=== PATIENT | male | born 1940 | race Caucasian/White ===

== ENCOUNTER → 2017-11-18 | Outpatient (CLI) | payer MEDICARE ==
--- NOTE | 2017-11-18 14:49 | XR ---
Left hip HISTORY: Pain and leg weakness 2 views of the left hip Bone mineralization may be slightly reduced. Joint spaces mildly reduced, there is some chondrocalcin osis, marginal spurring. Alignment is maintained. Vascular calcifications are suspected. Question sub chondral lucency at the lateral acetabulum compatible with geode. IMPRESSION: Correlate for possible crystal deposition disease rather than osteoarthritis.
--- NOTE | 2017-11-24 10:38 | P.ARTDOP ---
Arterial Doppler LOWER EXTREMITY ARTERIAL DOPPLER: DATE OF SERVICE: 11/18/2017 Reason for study: Leg numbness. Doppler waveforms: Multiphasic bilaterally throughout. Pulse volume recording: Normal configuration. Toes also have good waveforms. Pressure gradients: Only at the foot level. Ankle-brachial indices: Greater than 1 bilaterally. Toe pressures: 57 on the right, 54 on the left Impression: Normal flow proximal to foot. Lower toe pressures related to vasospastic phenomenon or less likely to distal disease. Perfusion should be quite adequate for healing..
== END | disposition home or self-care (01) ==
LOC: RADUSWWP 12:16
PROVIDERS: ATTEND Internal Medicine
DX: M25.552 Pain in left hip (principal); I73.9 Peripheral vascular disease, unspecified
CPT/HCPCS: 73502; 93923

== ENCOUNTER → 2019-05-20 | Outpatient (CLI) | payer MEDICARE ==
--- NOTE | 2019-05-20 13:57 | MR ---
MR brain without contrast HISTORY: Memory loss, imbalance and numbness in upper and lower extremities Multiplanar multisequence imaging through the brain No comparisons There is no restricted diffusion. There is ventriculomegaly thought to be in accordance within the de gree of cortical atrophy. There is no hemorrhage or hydrocephalus. There are normal vascular flow voi ds. Cerebellopontine angles, corpus callosum, pituitary, cervical medullary junction are normal. The orbits show symmetric appearance. The mucosal disease present within the maxillary sinuses, ethmoid a ir cells, possible mucus retention cyst left maxillary sinus. There is a deviated nasal septum, conch a bullosa present on the right. Confluent and scattered hyperintensities in the periventricular and s ubcortical white matter are present. IMPRESSION: Age-related atrophy and chronic small vessel ischemia, correlate for possible normal pres sure hydrocephalus.
== END | disposition home or self-care (01) ==
LOC: RADMRIMAIN 12:42
PROVIDERS: ATTEND Psychiatry & Neurology Neurology
DX: G31.1 Senile degeneration of brain, not elsewhere classified (principal); I67.82 Cerebral ischemia
CPT/HCPCS: 70551

== ENCOUNTER → 2019-05-31 | Outpatient (CLI) | payer MEDICARE ==
[~2019-05-31] MED LIST: REGADENOSON 0.4 MG/5 ML SYRINGE IV ONE
--- NOTE | 2019-05-31 12:45 | NM ---
EXAMINATION TYPE: NM stress lexiscan cardiolite DATE OF EXAM: 05/31/2019 COMPARISON: NONE HISTORY: Abnormal EKG TECHNIQUE: After the intravenous administration of 9.5 mCi Tc 99m Sestamibi - Cardiolite resting SPE CT images acquired 45 minutes post injection. The patient received 0.4mg Lexiscan, 26.2 mCi Tc 99m Sestamibi - Stress images obtained [address] injection FINDINGS: Review of stress and rest SPECT images demonstrates no distinct perfusion abnormality. Gated analysi s shows reduced wall motion involving the inferior lateral myocardium. An estimated left ventricular ejection fraction of 63 %. IMPRESSION: 1. Predominantly fixed defect involving the inferior and inferior lateral myocardium with correspondi ng abnormal wall motion. Small stress-induced reversible perfusion defect in this region difficult to exclude.
--- NOTE | 2019-05-31 14:36 | EST ---
EXERCISE STRESS AGE: 79 SEX: M HT: 5'5" WT: 213 PROTOCOL: Lexiscan Cardiolite Study HEART RATE REST: 76 BLOOD PRESSURE REST: 140/81 MAXIMUM HEART RATE ACHIEVED: 87 MAXIMUM BLOOD PRESSURE: 135/69 85% MPHR: 121 100% MPHR: 142 INDICATIONS: Abnormal EKG CLINICAL INFORMATION: A Lexiscan nuclear study was performed. Peak heart rate of 87 was achieved. Maximum blood pressure of 135/69 mmHg was noted. Resting EKG shows normal sinus rhythm with normal IL interval and QRS duration and normal ST-T waves. There is a small Q-wave noted in lead V5 and V6. No ST-segment depression suggestive of ischemia was noted. The results of the nuclear study will follow. MMODL / IJN: [id number] /
== END | disposition home or self-care (01) ==
LOC: RADNMMAIN 08:19
PROVIDERS: ATTEND Internal Medicine
DX: I51.89 Other ill-defined heart diseases (principal); I22.8 Subsequent ST elevation (STEMI) myocardial infarction of other sites
CPT/HCPCS: 93017; 78452; A9500; J2785

== ENCOUNTER → 2019-06-17 | Outpatient (CLI) | payer MEDICARE ==
[2019-06-17 16:30] LABS: Creatine Kinase 112 U/L (35-257)
[2019-06-17 16:34] LABS: Protein, Total 6.2 g/dL (6.2-8.2)
[2019-06-18 12:38] LABS: Albumin 3.94 g/dL (3.80-4.90); Gamma Globulin 0.86 g/dL (0.70-1.50)
== END | disposition home or self-care (01) ==
LOC: LABWHC1 09:21
PROVIDERS: ATTEND Psychiatry & Neurology Neurology
DX: G62.9 Polyneuropathy, unspecified (principal)
CPT/HCPCS: 36415; 82550; 82607; 82747; 83036; 84165; 84443; 85652; 86038; 86618; 86780

== ENCOUNTER → 2019-06-26 | Outpatient (CLI) | payer MEDICARE ==
--- NOTE | 2019-06-28 11:28 | MR ---
EXAMINATION TYPE: MR lumbar spine wo con DATE OF EXAM: 06/26/2019 COMPARISON: NONE HISTORY: Radiculopathy lumbar region TECHNIQUE: T1 and T2 axial and sagittal images of the lumbar spine are submitted. FINDINGS: There is no abnormal signal seen within the visualized spinal cord or paraspinal soft tissu es. There is multilevel severe degenerative disc disease with multilevel vacuum disks particularly no rehana at L2-3, L4-5, and L5-S1. There appears to be abnormal signal involving the S1 segment and a diff use abnormal signal in the S2 segment which is high in signal on both T1 and T2 sequences and most ty pical vertebral body hemangiomas. At L1-2 there is mild degenerative disc disease with hypertrophic change facets. No focal disc hernia tion. Neural foramina remain patent. Mild right lateral disc bulging. No canal stenosis. Vertebral tristen dy hemangioma of the posterior elements on the left suspected At L2-3 there is severe degenerative disc disease. There is diffuse disc bulging with hypertrophy of the facets and ligamentum flavum. Results in moderate left foraminal encroachment. The disc bulging i s greater laterally to the right resulting in severe right-sided foraminal encroachment. Right latera l disc protrusion or small herniation not excluded. Mild canal stenosis. At L3-4 there is degenerative disc disease with diffuse disc bulging, ligamentum flavum hypertrophy a nd facet arthropathy. There is mild bilateral foraminal encroachment and canal stenosis. Vertebral tristen dy hemangioma of L3 suspected. At L4-5 there is severe degenerative disc disease with advanced facet arthropathy and ligamentum flav um hypertrophy. Diffuse disc bulging or protrusion results in moderate to severe canal stenosis. Codie re bilateral foraminal encroachment. Epidural lipomatosis suspected. At L5-S1 there is severe degenerative disc disease with advanced facet arthropathy and suspicion for bilateral spondylolysis with bilateral spondylolisthesis. Severe bilateral neural foraminal encroachm ent. Broad-based disc bulging contributes to mild central stenosis. Bilateral lateral recess stenosis suspected. IMPRESSION: 1. Severe multilevel degenerative disc disease with marked facet arthropathy and suspicion for bilate ral spondylolysis of L5 resulting in a grade 1 anterolisthesis of L5 and S1. Mild canal stenosis and severe bilateral foraminal encroachment at this level. 2. Severe bilateral foraminal encroachment L4-L5 disc use disc bulging and hypertrophic changes resul ting in moderate to severe canal stenosis and severe bilateral foraminal encroachment. Epidural lipom atosis likely contributes. 3. Disc bulging and hypertrophic changes L3-L4 result in mild canal stenosis and mild bilateral richelle inal encroachment. 4. Disc bulging greater laterally to the right L2-L3 results in severe right-sided foraminal encroach ment. Lateral disc protrusion or small herniation cannot excluded. Findings result in mild canal sten osis. 5. Abnormal marrow signal as discussed above most likely on the basis of vertebral body hemangiomas w hich could be correlated with bone scan as clinically warranted.
== END | disposition home or self-care (01) ==
LOC: RADMRIMAIN 12:25
PROVIDERS: ATTEND Psychiatry & Neurology Neurology
DX: M48.061 Spinal stenosis, lumbar region without neurogenic claudication (principal); M51.86 Other intervertebral disc disorders, lumbar region; M43.06 Spondylolysis, lumbar region; M51.16 Intervertebral disc disorders with radiculopathy, lumbar region; M46.96 Unspecified inflammatory spondylopathy, lumbar region; R94.131 Abnormal electromyogram [EMG]
CPT/HCPCS: 72148

== ENCOUNTER 2019-07-08 06:17 | Day surgery (SDC) | payer MEDICARE ==
[2019-07-08] MEDS ORDERED: ALPRAZolam 0.5 MG TAB PO PRN (06:27)
[2019-07-08] MEDS ORDERED: SODIUM CHLORIDE 0.9% 1,000 ML in EMPTY BAG 1 BAG IV ONE (06:27)
[2019-07-08] MEDS ORDERED: NITROGLYCERIN SL TABS 0.4 MG TAB SUBLINGUAL PRN ×2 (06:27→08:47)
[2019-07-08] MEDS ORDERED: ASPIRIN 325 MG TAB PO STA (06:27)
[2019-07-08] MEDS ORDERED: ATORVASTATIN 80 MG TAB PO STA (06:27)
[2019-07-08] MEDS ORDERED: ALPRAZolam 0.25 MG TAB PO PRN (06:27)
[2019-07-08] MEDS ORDERED: MIDAZOLAM 2 MG/2 ML VIAL IV ONE (07:55)
[2019-07-08] MEDS ORDERED: LIDOCAINE 1% INJ 10MG/ML (20 ML MDV) SQ ONE (07:56)
[2019-07-08] MEDS ORDERED: VERAPAMIL SYRINGE (5 MG/10 ML) INTRAARTER ONE (08:00)
[2019-07-08] MEDS ORDERED: HEPARIN SODIUM 1,000 UN/ML (10ML VL) IV ONE (08:01)
[2019-07-08] MEDS ORDERED: NITROGLYCERIN 1000MCG/10ML SYRINGE INTRACORON ONE (08:22)
[2019-07-08] MEDS ORDERED: HYDROmorphone 1 MG/ML 1 ML SYRINGE IVP ONE (08:35)
[2019-07-08] MEDS ORDERED: IOPAMIDOL-370 125ML BTL INJ ONE (08:37)
[2019-07-08] MEDS ORDERED: CLOPIDOGREL 75 MG TAB PO ONE (08:37)
[2019-07-08] MEDS ORDERED: IBUPROFEN 600 MG TAB PO PRN (08:46)
[2019-07-08] MEDS ORDERED: ACETAMINOPHEN TAB 500 MG TAB PO PRN (08:46)
[2019-07-08] MEDS ORDERED: ATROPINE SULFATE 0.1 MG/ML 10ML SYRINGE IV PRN (08:47)
[2019-07-08] MEDS ORDERED: RX INFO: IV CONTRAST WAS GIVEN 1 EACH MISC MISCELLANE PRN (08:47)
[2019-07-08] MEDS ORDERED: MAG HYDROX/AL HYDROX/SIMETH 30 ML CUP PO PRN (08:47)
[2019-07-08] MEDS ORDERED: ZOLPIDEM 5 MG TAB PO PRN (08:47)
[2019-07-08] MEDS ORDERED: SODIUM CHLORIDE 0.9% 1,000 ML IV SCH (09:00)
[2019-07-08] MEDS ORDERED: NON FORMULARY DRUG (Vitamin B Complex [Vitamin B Complex] 1 EACH) PO SCH (09:00)
[2019-07-08] MEDS ORDERED: NON FORMULARY DRUG (Omega-3 Fatty Acids/Fish Oil [Fish Oil 1,000 Mg Softgel] 1 EACH) PO SCH (09:00)
[2019-07-08] MEDS ORDERED: FOLIC ACID 1 MG TAB PO SCH (09:00)
--- NOTE | 2019-07-08 09:38 | CC ---
CARDIAC CATHETERIZATION REPORT CARDIAC CATHETERIZATION AND PERCUTANEOUS CORONARY INTERVENTION: DATE OF SERVICE: July 08, 2019 PERFORMING PHYSICIAN: Chu Celaya MD. PROCEDURE PERFORMED: 1. Selective right and left coronary angiogram. 2. Left heart catheterization. 3. Successful stenting of the distal right coronary artery using 2.0 x 12 mm Robert SAHRA with an excellent angiographic result and reduction of stenosis from 80% to 0%. INDICATION: This is a 79-year-old gentleman with history of coronary artery disease and prior stenting of the left circumflex in the setting of acute ST-segment elevation myocardial infarction, was going to undergo carpal tunnel surgery. He underwent a myocardial perfusion imaging stress test and that revealed inferolateral ischemia. Because of that, he was brought today to undergo a heart catheterization. APPROACH: Right radial artery. COMPLICATION: None. LEVEL OF SEDATION: Moderate with sedation length of 45 minutes. PROCEDURE DESCRIPTION: After obtaining an informed consent, the patient was brought to the cardiac quality assurance qa lab analyst. The right radial artery was cannulated using micropuncture technique, the micropuncture wire passed easily then I placed a 6-Tristanian sheath 11 cm at the right radial artery. After that, anticoagulation was initiated using heparin and the patient was given a weight-based heparin with 2 mg of verapamil IA. After that I did selective right and left coronary angiogram using JR4 and JL3.5 catheters. Left heart catheterization was performed using the JR4 catheter which crossed the aortic valve then I did pullback across the valve. The procedure was completed without any complication. SELECTIVE CORONARY ANGIOGRAM: 1. Right coronary artery is a large caliber vessel. It is a codominant vessel. The proximal and mid RCA appeared to have mild disease only. The RCA distally appeared to have a tight lesion in the range of 80% was most appreciated in the straight SALVADOR view as well as AP cranial view. 2. The left main is angiographically normal. It bifurcates into left circumflex and left anterior descending artery. 3. The left circumflex is a large caliber vessel. It is a codominant vessel. The proximal left circumflex has mild disease only. The mid left circumflex is stented and the stent is patent. In the middle of that stent, a good-sized OM branch comes which has an ostial disease appeared to be in the range of 80% to 90%. The left circumflex distally appeared to have another lesion in the range of 80%, but the left circumflex becomes medium caliber vessel just after it gives rise into a second OM branch which appeared to be angiographically normal. 4. The left anterior descending artery is a large caliber vessel. The appeared to have mild disease in the midportion with normal in the proximal and distal portion. The LAD gives rise into a large diagonal branch which appeared to have mild disease only as well. HEMODYNAMICS: The LVEDP was about 10 mmHg without significant gradient across the aortic valve. PCI OF THE RCA: Anticoagulation was achieved using heparin only with ACT prior to advancing the wire. After that, I did engage the RCA using JR4 guide. I did wire it using a whisper wire. After that I did balloon angioplasty using 2.0 x 8 mm balloon before I deployed 2.0 x 12 mm Sheldon drug-eluting stent where the stent was positioned under fluoroscopy guidance and deployed under 8 atmospheres for 20 seconds with the following angiogram showing excellent angiographic results and the procedure was completed without any complication. CONCLUSION: 1. Severe disease involving the distal right coronary artery with a de Rg lesion. 2. Patent stent in the mid left circumflex. Critical disease involving the ostial of OM1, which originating from the mid of the stent. Beside that, there was severe disease involving the distal left circumflex which becomes small to medium caliber vessel. 3. Mild disease involving the left anterior descending artery system. 4. Successful stenting of the distal right coronary artery as described above. POSTPROCEDURE MANAGEMENT: 1. Dual antiplatelet therapy. 2. Risk factors modifications. 3. Continue following up with the patient and consider the possible stenting of the OM1 with bifurcation stent if the patient is symptomatic. MMODL / IJN: [id number] /
--- NOTE | 2019-07-08 09:51 | LTR ---
July 08, 2019 Re: Jameson Linaresjatinder Dear Dr. Rodgers: Mr. Jameson Madrigal underwent today heart catheterization and that revealed severe disease involving the distal right coronary artery. I did perform successful angioplasty of the RCA with good angiographic results and without any complication. I want to thank you for allowing me to participate in his care and please do not hesitate to call if you have any question or concern. Sincerely, MD ARON Telles / BRENNAN: [id number] /
[2019-07-08] MEDS: TAMSULOSIN 0.4 MG CAP.ER.24H PO SCH (12:03)
[2019-07-08] MEDS: MULTIVITAMINS, THERA 1 EACH TAB PO SCH (12:03)
[2019-07-08] MEDS: CYANOCOBALAMIN 500 MCG TAB PO SCH (12:03)
[2019-07-08] MEDS: FINASTERIDE 5 MG TAB PO SCH (12:03)
[2019-07-08] MEDS: FOLIC ACID 1 MG TAB PO SCH (12:03)
[2019-07-08 14:08] VITALS: BMI 35.8
[2019-07-08] MEDS ORDERED: ATORVASTATIN 80 MG TAB PO SCH (21:00)
[2019-07-09 03:58] VITALS: TEMP 97.4
[2019-07-09 06:49] LABS: Basophils % (A) 1 %; Eosinophils # (A) 0.2 k/uL (0-0.7); Eosinophils % (A) 5 %; HCT 37.8 % (39.0-53.0); HGB 12.5 gm/dL (13.0-17.5); Lymphocytes % (A) 19 %; MCH 31.4 pg (25.0-35.0); MCHC 33.1 g/dL (31.0-37.0); MCV 94.9 fL (80.0-100.0); Mean Platelet Volume 7.7; Monocytes # (A) 0.5 k/uL (0-1.0); Monocytes % (A) 11 %; Neutrophils % (A) 61 %; Platelet Count 139 k/uL (150-450); RBC 3.98 m/uL (4.30-5.90); RDW 13.5 % (11.5-15.5)
[2019-07-09 07:06] LABS: African American GFR (CKD) >90 (>60 ml/min/1.73 sqM); Anion Gap 6 mmol/L; Blood Urea Nitrogen 24 mg/dL (9-20); Calcium 8.7 mg/dL (8.4-10.2); Carbon Dioxide 24 mmol/L (22-30); Chloride 108 mmol/L (98-107); Glucose 97 mg/dL (74-99); Non-African American GFR(CKD) 80 (>60 ml/min/1.73 sqM); Potassium 4.6 mmol/L (3.5-5.1); Sodium 138 mmol/L (137-145)
[2019-07-09 08:35] VITALS: BP 147/86; PULSE 85; RESP 18
[2019-07-09] MEDS: FINASTERIDE 5 MG TAB PO SCH (08:37)
[2019-07-09] MEDS: MULTIVITAMINS, THERA 1 EACH TAB PO SCH (08:37)
[2019-07-09] MEDS: CYANOCOBALAMIN 500 MCG TAB PO SCH (08:37)
[2019-07-09] MEDS: FOLIC ACID 1 MG TAB PO SCH (08:37)
[2019-07-09] MEDS: TAMSULOSIN 0.4 MG CAP.ER.24H PO SCH (08:37)
--- NOTE | 2019-07-09 08:56 | DS ---
DISCHARGE SUMMARY ADMISSION DATE: July 08, 2019. DISCHARGE DATE: July 09, 2019 BRIEF HISTORY: This is a 79-year-old gentleman who underwent yesterday a heart catheterization and stenting of the distal right coronary artery from right radial approach. The patient was seen this morning. He is asymptomatic. He is going to be discharged home on dual antiplatelet therapy and I will follow up with him in the office next week. MMMADHURI / SAADN: [id number] /
[2019-07-09] MEDS ORDERED: CLOPIDOGREL 75 MG TAB PO SCH (09:00)
[2019-07-09] MEDS ORDERED: ASPIRIN 81 MG PO SCH (09:00)
== END 2019-07-09 10:57 | disposition home or self-care (01) ==
LOC: CATHCVL 06:17 → 3SCARD 11:02 → CATHCVL 07-09 10:57
PROVIDERS: ATTEND Internal Medicine Interventional Cardiology
DX: I25.110 Atherosclerotic heart disease of native coronary artery with unstable angina pectoris (principal); I10 Essential (primary) hypertension; E78.5 Hyperlipidemia, unspecified; E78.00 Pure hypercholesterolemia, unspecified; Z95.5 Presence of coronary angioplasty implant and graft; Z79.1 Long term (current) use of non-steroidal anti-inflammatories (NSAID); Z79.82 Long term (current) use of aspirin; Z79.899 Other long term (current) drug therapy
CPT/HCPCS: 93458; 80048; 85025; C9600; C1769 ×2; C1887; C1725; C1874; C1894; S0138 ×2; J2250; J2001; J1644 ×2; J1170; Q9967

== ENCOUNTER → 2020-01-26 | Outpatient (CLI) | payer MEDICARE | END | disposition home or self-care (01) | LOC: RADUSWWP 12:26 | PROVIDERS: ATTEND Internal Medicine | DX: I73.9 Peripheral vascular disease, unspecified (principal) | CPT/HCPCS: 93922 ==

== ENCOUNTER → 2020-02-22 | Outpatient (CLI) | payer MEDICARE ==
[2020-02-22 16:15] LABS: HCT 38.6 % (39.0-53.0); HGB 12.4 gm/dL (13.0-17.5); MCH 30.6 pg (25.0-35.0); MCHC 32.2 g/dL (31.0-37.0); MCV 94.9 fL (80.0-100.0); Mean Platelet Volume 7.4; Platelet Count 198 k/uL (150-450); RBC 4.07 m/uL (4.30-5.90); RDW 13.4 % (11.5-15.5); WBC 6.7 k/uL (3.8-10.6)
[2020-02-22 16:45] LABS: Appearance,Urine Clear (Clear); Bilirubin,Urine Negative (Negative); Blood,Urine Negative (Negative); Color,Urine Yellow; Glucose,Urine (UA) Negative (Negative); Ketones,Urine Negative (Negative); Leukocyte Esterase,Urine Negative (Negative); Nitrite,Urine Negative (Negative); PH, Urine 5.5 (5.0-8.0); Protein,Urine Negative (Negative); Specific Gravity,Urine 1.022 (1.001-1.035); Urobilinogen,Urine <2.0 mg/dL (<2.0)
[2020-02-23 01:40] LABS: INR 0.94 (0.90-1.11); Partial Thromboplastin Time 28.7 sec (24.7-29.9); Prothrombin Time 10.1 sec (9.9-11.9)
[2020-02-23 04:18] LABS: African American GFR (CKD) 93.8 (60.0-200.0); Anion Gap 11.8 mmol/L (4.00-12.00); BUN/Creat Ratio 21.11 Ratio (12.00-20.00); Calcium 9.1 mg/dL (8.7-10.3); Carbon Dioxide 21.2 mmol/L (21.6-31.8); Non-African American GFR(CKD) 80.9 (60.0-200.0); Potassium 4.3 mmol/L (3.5-5.5)
--- NOTE | 2020-02-23 08:48 | XR ---
EXAMINATION TYPE: XR chest 2V DATE OF EXAM: 02/22/2020 COMPARISON: Prior chest x-ray 11/23/2014 HISTORY: Presurgical testing, M 48.06, Z01.812 TECHNIQUE: Frontal and lateral views of the chest are obtained. FINDINGS: There is no focal air space opacity, pleural effusion, or pneumothorax seen. The cardiac silhouette size is within normal limits. The osseous structures are intact, there is a mild spinal curvature, thoracic spondylosis. IMPRESSION: No acute cardiopulmonary process.
== END | disposition home or self-care (01) ==
LOC: LABWHC1 15:54
PROVIDERS: ATTEND Neurological Surgery
DX: Z01.818 Encounter for other preprocedural examination (principal); Z01.812 Encounter for preprocedural laboratory examination; M48.061 Spinal stenosis, lumbar region without neurogenic claudication
CPT/HCPCS: 36415; 71046; 80048; 81003; 85027; 85610; 85730

== ENCOUNTER 2020-03-14 17:38 | Emergency (ER) | payer MEDICARE ==
[2020-03-14 18:54] LABS: Basophils % (A) 0 %; Eosinophils # (A) 0.2 k/uL (0-0.7); Eosinophils % (A) 1 %; HGB 11.4 gm/dL (13.0-17.5); Lymphocytes # (A) 0.5 k/uL (1.0-4.8); Lymphocytes % (A) 5 %; MCH 31.3 pg (25.0-35.0); MCHC 32.5 g/dL (31.0-37.0); MCV 96.2 fL (80.0-100.0); Mean Platelet Volume 7.6; Monocytes # (A) 0.4 k/uL (0-1.0); Monocytes % (A) 4 %; Neutrophils # (A) 9.8 k/uL (1.3-7.7); Neutrophils % (A) 89 %; Platelet Count 265 k/uL (150-450); RBC 3.64 m/uL (4.30-5.90); RDW 13.2 % (11.5-15.5)
[2020-03-14 18:55] LABS: African American GFR (CKD) >90 (>60 ml/min/1.73 sqM); Anion Gap 7 mmol/L; Blood Urea Nitrogen 25 mg/dL (9-20); C Reactive Protein 45.2 mg/L (<10.0); Calcium 9.4 mg/dL (8.4-10.2); Carbon Dioxide 28 mmol/L (22-30); Chloride 101 mmol/L (98-107); Glucose 169 mg/dL (74-99); Non-African American GFR(CKD) 85 (>60 ml/min/1.73 sqM); Potassium 4.5 mmol/L (3.5-5.1); Sodium 136 mmol/L (137-145)
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
[2020-03-14 19:51] VITALS: RESP 18; TEMP 97.8
--- NOTE | 2020-03-14 20:45 | XR ---
Result: History: Chronic low back pain. Comparison: 09/21/2013. Technique: 3 views of the lumbar spine. Findings: The bone mineralization is normal. Images of the lumbar spine demonstrate 5 lumbar-type vertebrae. There is no acute fracture. There is redemonstration of L4-S1 posterior instrument effusion. There is grade 2 anterolisthesis of L5 on S1 . The vertebral body heights are preserved throughout the imaged lumbar spine. There is severe disc height narrowing at L2-L3 and moderate at L1-L2 as well as at the imaged lower thoracic spine. Impression: L4-S1 fusion with grade 2 anterolisthesis at L5-S1. Otherwise multilevel moderate to severe thoracolumbar spondylosis.
[2020-03-14 21:31] VITALS: PULSE 80
[2020-03-14 22:45] VITALS: BP 125/69
== END 2020-03-14 22:45 | disposition home or self-care (01) ==
LOC: EC 17:38
DX: U07.1 COVID-19 (principal); M54.5 Low back pain; I25.10 Atherosclerotic heart disease of native coronary artery without angina pectoris; I10 Essential (primary) hypertension; I25.2 Old myocardial infarction; M19.90 Unspecified osteoarthritis, unspecified site; Z79.899 Other long term (current) drug therapy; Z79.82 Long term (current) use of aspirin; Z96.653 Presence of artificial knee joint, bilateral
CPT/HCPCS: 36415; 72100; 80048; 85025; 86140; 99283

== ENCOUNTER → 2020-06-05 | Outpatient (CLI) | payer MEDICARE ==
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
== END | disposition home or self-care (01) ==
LOC: RADXRMAIN 15:19
PROVIDERS: ATTEND Neurological Surgery
DX: Z47.89 Encounter for other orthopedic aftercare (principal); M43.17 Spondylolisthesis, lumbosacral region; Z98.1 Arthrodesis status
CPT/HCPCS: 72100

== ENCOUNTER → 2020-06-22 | Outpatient (CLI) | payer MEDICARE ==
--- NOTE | 2020-06-22 15:38 | CT ---
EXAMINATION TYPE: CT pelvis wo con DATE OF EXAM: 06/22/2020 COMPARISON: None INDICATION: Rt hip pain, Spondylolisthesis DLP: 611 mGycm, Automated exposure control for dose reduction was used. CONTRAST: 0 mL of Isovue 300. Study performed without Oral Contrast TECHNIQUE: Axial images were obtained from above the iliac crests to the pubic rami in the axial plan e at 5 mm thick sections. Reconstructed images are reviewed on the computer in the coronal plane. FINDINGS: CT PELVIS: Pedicle screws are present L4-S1. Disc spacers present L4-5 L5-S1. Minimal grade 1 spondyl olisthesis of L4 anterior on L5 is present. No spinal canal stenosis present. Postlaminectomy changes are evident. Loops of bowel within the abdomen and pelvis are normal. Study is without oral contrast limiting bowel evaluation. Appendix: Normal as visualized. Urinary bladder: Decompressed. Some mild wall thickening can be related to incomplete distention. Genitourinary structures: Prostate has mild prominence. Osseous structures: No suspicious lytic or sclerotic lesions. Postsurgical changes within the lumbar spine. IMPRESSIONS: 1. Mild grade 1 spondylolisthesis of L5 anterior on S1. 2. Pedicle screws and disc spacers 034 and L4-5.
== END | disposition home or self-care (01) ==
LOC: RADCTMAIN 13:47
PROVIDERS: ATTEND Neurological Surgery
DX: M43.18 Spondylolisthesis, sacral and sacrococcygeal region (principal)
CPT/HCPCS: 72192

== ENCOUNTER → 2020-06-27 | Outpatient (CLI) | payer MEDICARE ==
[2020-06-27 16:54] LABS: ALT 18 U/L (4-49); AST 23 U/L (17-59); African American GFR (CKD) 81 (>60 ml/min/1.73 sqM); Albumin 4.3 g/dL (3.5-5.0); Albumin/Globulin Ratio 1.5; Alkaline Phosphatase 103 U/L (38-126); Anion Gap 9 mmol/L; Blood Urea Nitrogen 16 mg/dL (9-20); Calcium 9.6 mg/dL (8.4-10.2); Carbon Dioxide 29 mmol/L (22-30); Chloride 105 mmol/L (98-107); Globulin 2.9 g/dL; Glucose 107 mg/dL (74-99); Non-African American GFR(CKD) 70 (>60 ml/min/1.73 sqM); Potassium 4.6 mmol/L (3.5-5.1); Sodium 143 mmol/L (137-145); Total Bilirubin 0.4 mg/dL (0.2-1.3); Total Protein 7.2 g/dL (6.3-8.2)
== END | disposition home or self-care (01) ==
LOC: LABWHC1 14:42
PROVIDERS: ATTEND Neurological Surgery
DX: Z01.812 Encounter for preprocedural laboratory examination (principal)
CPT/HCPCS: 36415; 80053

== ENCOUNTER → 2020-11-15 | Outpatient (CLI) | payer MEDICARE ==
--- NOTE | 2020-11-15 13:30 | XR ---
Lumbar spine HISTORY: Lumbar fusion, M43.26 3 views the lumbar spine, correlation prior exam 06/05/2020 There is no significant change. There is a spinal curvature. Posterior fusion changes are stable at L 4-5 S1. There is multilevel spondylosis. Loss of disc height is present at intervertebral levels. Lum bar vertebral bodies show stable height, bone mineralization, alignment. Anterolisthesis grade 1 L5-S 1, retrolisthesis grade 1 L3-4. Intervertebral spacers are present L4-5 and L5-S1. Vacuum phenomenon present L5-S1, L4-5, L2-3, T12-L1. Calcifications are seen over the right kidney. Dense atherosclerot ic calcification present in the aortoiliac distribution. Bone mineralization is reduced. IMPRESSION: Postop changes, degenerative disc disease, spinal curvature. Right nephrolithiasis.
== END | disposition home or self-care (01) ==
LOC: RADXRMAIN 11:25
PROVIDERS: ATTEND Neurological Surgery
DX: M51.36 Other intervertebral disc degeneration, lumbar region (principal); N20.0 Calculus of kidney; M43.26 Fusion of spine, lumbar region; M53.86 Other specified dorsopathies, lumbar region
CPT/HCPCS: 72100

== ENCOUNTER → 2020-11-15 | Outpatient (CLI) | payer MEDICARE ==
[2020-11-15 18:40] LABS: Hemoglobin A1C 5.8 % (4.0-6.0)
[2020-11-15 23:24] LABS: Protein, Total 6.5 g/dL (6.2-8.2)
[2020-11-15 23:28] LABS: T4, Free (Free Thyroxine) 1.1 ng/dL (0.80-1.80)
== END | disposition home or self-care (01) ==
LOC: LABWHC1 10:46
PROVIDERS: ATTEND Psychiatry & Neurology Neurology
DX: G62.9 Polyneuropathy, unspecified (principal); R73.9 Hyperglycemia, unspecified
CPT/HCPCS: 36415; 82607; 82747; 83036; 84165; 84439; 84443; 85652; 86038; 86618

== ENCOUNTER → 2021-05-23 | Outpatient (CLI) | payer MEDICARE ==
--- NOTE | 2021-05-23 22:54 | CT ---
EXAMINATION TYPE: CT lumbar spine wo con DATE OF EXAM: 05/23/2021 COMPARISON: CT pelvis dated 06/14/2020 HISTORY: chronic low back pain, left leg numbness TECHNIQUE: CT scan of the lumbar spine performed without contrast CT DLP: 1459.2 mGycm Automated exposure control for dose reduction was used. FINDINGS: There are 5 nonrib-bearing lumbar-type vertebral bodies. There is straightening of the lumbar curvatu re. There is generalized bony demineralization. There is bilateral plate and screw complex at L4, L5 and S1. Intervertebral disc spacers are seen at L4-5 and L5-S1. The hardware appears intact. The L5 vertebral body has inferior loss of height similar to prior study likely related to endplate d egenerative changes. Multiple additional vertebral bodies display mild endplate degenerative changes. There are disc degenerative changes extending from T12 L1-S1. There is moderate-severe narrowing of the intervertebral spaces, L4-5 and L5-S1 are the most severe. L5 is slightly translated anteriorly over S1. No significant bony spinal canal stenosis. There is ventral and dorsal bony spurring extending from the lower thoracic spine throughout the lumb ar spine. Neural foraminal narrowing is present in multiple levels secondary to bony spurring and facet joint a rthropathy, this appears most severe at L4-5 and L5-S1 and does appear to be greater on the left. Evaluation for disc herniation is suboptimal due to technique and due to streak from the hardware. It is suspected there is some disc herniation at L4-5 and L5-S1. There no acute fracture or dislocation seen. No aggressive osseous lesion seen. The sacroiliac joints are partially included, there are degenerative changes in the left sacroiliac j oint. There are atherosclerotic calcifications are seen in the abdominal aorta and involve its abdominal br anches including the bilateral renal arteries. A partially seen low attenuating lesion arises from the left kidney lower pole and is incompletely ev aluated. There are calcific densities in both kidneys which may be vascular though a left kidney lowe r pole calculus may not be vascular. IMPRESSION: 1. SEVERE DEGENERATIVE CHANGES OF THE SPINE WITH SURGICAL HARDWARE, THE HARDWARE APPEARS INTACT. SEE BODY OF REPORT FOR DETAILS. 2. LARGE LOW ATTENUATING LESION PARTIALLY SEEN IN THE LEFT KIDNEY AND PROBABLE LEFT KIDNEY NONOBSTRUC TING CALCULUS. RENAL ULTRASOUND MAY BE PERFORMED FOR INITIAL EVALUATION.
== END | disposition home or self-care (01) ==
LOC: RADCTMAIN 17:47
PROVIDERS: ATTEND Neurological Surgery
DX: M51.36 Other intervertebral disc degeneration, lumbar region (principal)
CPT/HCPCS: 72131

== ENCOUNTER → 2021-06-02 | Outpatient (CLI) | payer MEDICARE ==
--- NOTE | 2021-06-03 00:44 | MR ---
EXAMINATION TYPE: MR cervical spine wo con DATE OF EXAM: 06/02/2021 COMPARISON: None HISTORY: Chronic neck pain, spinal stenosis. Multiplanar multiecho imaging of the cervical spine without contrast. Vertebrae have normal alignment. There is some mild degenerative disc space narrowing at C3-4 and C5- 6 and C6-7. There is a posterior disc bulging from C4 to C7. There is developmentally adequate spinal canal. There is no spinal stenosis. Canal measures 10 mm at the narrowest point. The brainstem is in tact. Cervical spinal cord has normal signal pattern. There is no edema. There is mild anterior disc bulging also at levels from C4 to C7. There is no compression fracture. There is no evidence of focal bone destruction. The clivus is somewhat bulky but no discrete mass seen. There is fatty marrow replacement of the cliv us. There is no cervical paraspinal mass. IMPRESSION: Mild multilevel cervical spondylotic changes with disc mild bulging. No spinal stenosis. No fracture.
== END | disposition home or self-care (01) ==
LOC: RADMRIMAIN 13:42
PROVIDERS: ATTEND Neurological Surgery
DX: M47.892 Other spondylosis, cervical region (principal); M48.02 Spinal stenosis, cervical region; G89.4 Chronic pain syndrome
CPT/HCPCS: 72141

== ENCOUNTER → 2021-06-09 | Outpatient (CLI) | payer MEDICARE ==
--- NOTE | 2021-06-10 09:58 | XR ---
EXAMINATION TYPE: XR knee limited RT DATE OF EXAM: 06/09/2021 COMPARISON: 03/08/2011 HISTORY: Pain TECHNIQUE: Three views are submitted. FINDINGS: Postsurgical changes. Soft tissue edema in the suprapatellar bursa and subcutaneous tissues. Metallic density likely related to chronic foreign body soft tissues anterior to the distal femur. Osseous st ructures are intact. No acute fracture seen. IMPRESSION: 1. No acute fracture or dislocation. 2. Soft tissue edema. See above.
== END | disposition home or self-care (01) ==
LOC: RADXRMAIN 11:53
PROVIDERS: ATTEND Internal Medicine
DX: R60.9 Edema, unspecified (principal)

== ENCOUNTER → 2021-06-14 | Outpatient (CLI) | payer MEDICARE ==
--- NOTE | 2021-06-14 16:50 | US ---
EXAMINATION TYPE: US venous doppler duplex LE BI DATE OF EXAM: 06/14/2021 4:31 PM COMPARISON: NONE CLINICAL HISTORY: R60.0 KATI LEG EDEMA. SIDE PERFORMED: Bilateral TECHNIQUE: The lower extremity deep venous system is examined utilizing real time linear array sonog giovanna with graded compression, doppler sonography and color-flow sonography. VESSELS IMAGED: Common Femoral Vein Deep Femoral Vein Greater Saphenous Vein * Femoral Vein Popliteal Vein Small Saphenous Vein * Proximal Calf Veins (* superficial vessels) Right Leg: Negative for DVT Left Leg: Negative for DVT IMPRESSION: Negative for DVT. Grayscale, color doppler, spectral doppler imaging performed of the de ep veins of the lower extremities. There is normal flow, compressibility, vascular waveforms.
--- NOTE | 2021-06-15 08:28 | XR ---
Right shoulder HISTORY: Pain, trauma 3 views of the right shoulder on 4 images, comparison to chest x-ray 02/22/2020 Bone mineralization and alignment are maintained. There is spurring of the glenohumeral joint, acromi oclavicular joint shows fracture of questionable acuity, arthropathy changes present, there is an oss ific fragment which is well-corticated at the cephalad aspect of the joint which is not felt likely t o be acute. Distal clavicular fracture shows bayonet apposition however there is some sclerosis prese nt, minimal superior displacement of the distal clavicular fragment in relation to the acromion. Ther e is no evident dislocation. Right lung apex as visualized is normal. Distal acromion is downturned, there is an acromial spur. IMPRESSION: Osteoarthritis. Evidence of distal clavicular fracture of questionable acuity. Correlate for history of trauma, MRI may be of benefit.
== END | disposition home or self-care (01) ==
LOC: RADUSWWP 16:07
PROVIDERS: ATTEND Internal Medicine
DX: M25.511 Pain in right shoulder (principal); R60.0 Localized edema
CPT/HCPCS: 93970

== ENCOUNTER → 2021-10-24 | Outpatient (CLI) | payer MEDICARE ==
[2021-10-24 18:17] LABS: African American GFR (CKD) 79.1 (60.0-200.0); Anion Gap 11.7 mmol/L (10.00-18.00); BUN/Creat Ratio 16.21 Ratio (12.00-20.00); Blood Urea Nitrogen 16.7 mg/dL (9.0-27.0); Calcium 9.1 mg/dL (8.7-10.3); Carbon Dioxide 24.5 mmol/L (20.0-27.5); Non-African American GFR(CKD) 68.3 (60.0-200.0); Potassium 4.3 mmol/L (3.5-5.5)
== END | disposition home or self-care (01) ==
LOC: LABWHC1 10:04
PROVIDERS: ATTEND Internal Medicine Interventional Cardiology
DX: N18.9 Chronic kidney disease, unspecified (principal)
CPT/HCPCS: 36415; 80048

== ENCOUNTER → 2022-05-17 | Outpatient (CLI) | payer MEDICARE ==
--- NOTE | 2022-05-17 12:21 | CT ---
EXAMINATION TYPE: CT lumbar spine wo con DATE OF EXAM: 05/17/2022 COMPARISON: 05/23/2021 HISTORY: lower back and bilateral leg pain CT DLP: 2334.[address] of the lumbar spine was performed. Bone and soft tissue window settings are submitted as well as coronal and sagittal reconstructions. L1-L2: Vacuum disc noted. No significant disc bulge. Ventral spondylosis. Mild facet joint arthropath y. No evidence for foraminal encroachment. L2-L3: Vacuum disc noted. Circumferential disc bulge with partially encapsulating spur resulting in d isc endplate complex. Hypertrophy of the ligamentum flavum and facet joint arthropathy contribute to [id number] stenosis. Mild bilateral neural foraminal encroachment greater on the right. L3-L4: Moderate degenerative disc space narrowing. Circumferential disc bulge greatest posteriorly. H ypertrophy of the ligamentum flavum and facet joint arthropathy resulting in moderate central stenosi s. Bilateral foraminal encroachment. Ventral spondylosis. L4-L5: Changes of left hemilaminectomy. Pedicular screws are in place as well as intervertebral body spacers. Postoperative alignment is anatomic. No definite evidence for recurrent or residual disease. Mild left foraminal encroachment. L5-S1: Changes of decompressive laminectomy with pedicular screws in place. Intervertebral body space r. There is grade 1 anterolisthesis measuring 5 mm unchanged from prior study. Streak artifact limits evaluation. No evidence for recurrent or residual disease. No paraspinal masses are identified. Lumbar segments are free if fracture. IMPRESSION: 1. Bilevel degenerative disc disease. 2. Central stenosis noted at L2-3 and L3-4. 3. Postoperative changes as discussed above.
== END | disposition home or self-care (01) ==
LOC: RADCTMAIN 11:31
PROVIDERS: ATTEND Neurological Surgery
DX: M96.0 Pseudarthrosis after fusion or arthrodesis (principal); M51.36 Other intervertebral disc degeneration, lumbar region; M48.061 Spinal stenosis, lumbar region without neurogenic claudication; Z98.890 Other specified postprocedural states
CPT/HCPCS: 72131

== ENCOUNTER → 2022-08-19 | Outpatient (CLI) | payer MEDICARE ==
--- NOTE | 2022-08-19 22:25 | CT ---
EXAMINATION TYPE: CT iac wo con DATE OF EXAM: 08/19/2022 COMPARISON: NONE HISTORY: hearing loss for 2 weeks but has improved recently. 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 CT DLP: 150.0 mGycm. Automated Exposure Control for Dose Reduction was Utilized. TECHNIQUE: CT scan of internal auditory canal is performed without contrast, thin cut axial images ar e obtained, coronal reformatted images are also reviewed. FINDINGS: Some patchy soft tissue density deep anterior right external auditory canal likely reflects small degree of cerumen axial image 39. Left external auditory canal is patent. Mastoid air cells sh ow single partially opacified inferior posterior left mastoid air cell axial image 39. Right mastoid air cells are well-aerated. The middle ear ossicles are symmetric and unremarkable. There is no evidence of suspicious surround ing soft tissue density to suggest cholesteatoma. The scutum is preserved bilaterally. The cochlea and the semicircular canals are symmetric and unremarkable. There is satisfactory bony o vergrowth along the superior semicircular canal bilaterally, no dehiscence is seen. Focal moderate ca lcified plaque left internal carotid canal axial image 45 is noted. Mild calcified plaque right petersen tid canal is present. The vestibulocochlear complexes are symmetric and maintained. Temporomandibular joints are maintained bilaterally. Visualized paranasal sinuses show mild mucosal thickening involving the ethmoid sinuses bilaterally and the inferior bilateral maxillary sinuses. Vi sualized portion brain parenchyma is felt within normal limits. Nasal septum is deviated to left of m idline. Globes are intact bilaterally. IMPRESSION: Source of patient's recent hearing loss is not clearly identified.
== END | disposition home or self-care (01) ==
LOC: RADCTMAIN 16:33
PROVIDERS: ATTEND Internal Medicine
DX: H90.3 Sensorineural hearing loss, bilateral (principal)
CPT/HCPCS: 70480

== ENCOUNTER → 2022-09-09 | Outpatient (CLI) | payer MEDICARE ==
--- NOTE | 2022-09-09 14:22 | MR ---
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 COMPARISON: None TECHNIQUE: Multi planar, multi sequence imaging was performed utilizing: T1-weighted, T2-weighted, a nd turbo inversion recovery imaging of the cervical and thoracic spine. MR contrast: IV Contrast: None. FINDINGS: CERVICAL: Alignment: The cervical vertebral bodies have preserved heights. Alignment is within normal limits gi zoe patient positioning. Bones: Bone signal is within normal limits. No abnormal bony edema on inversion recovery sequences. M ultilevel osteophyte formation and disc space narrowing are seen throughout the cervical and thoracic spine. Cord: The spinal cord is unremarkable with regards to their signal intensity and morphology. Discs: Multilevel disc desiccation is present. C2-C3: No significant disc pathology. The spinal canal is patent. Bilateral facet and uncovertebral joint arthropathy are present with moderate left and mild right neural foraminal stenosis. C3-C4: No significant disc pathology. The spinal canal is patent. Bilateral facet and uncovertebral joint arthropathy are present with moderate bilateral neural foraminal stenosis. C4-C5: A eccentric right disc osteophyte complex is present with mild spinal canal stenosis. Bilater al facet and uncovertebral joint arthropathy are present with moderate bilateral neural foraminal tanvi nosis. C5-C6: A disc osteophyte complex is present with mild spinal canal stenosis. Bilateral facet and unc overtebral joint arthropathy are present with moderate bilateral neural foraminal stenosis. C6-C7: A disc osteophyte complex is present which minimally narrows the ventral subarachnoid space. Bilateral facet and uncovertebral joint arthropathy are present with moderate left and mild right ne ural foraminal stenosis. C7-T1: No significant disc pathology. The spinal canal is patent. No neural foraminal stenosis. THORACIC: T2-T3: Eccentric right disc bulge without significant spinal canal stenosis. There is mild bilateral neural foraminal stenosis. The spinal canal is patent. The remainder of the thoracic spinal canal valentine ral foramen are patent. Spinal cord signal is maintained. Other: None. IMPRESSION: 1. No definitive evidence of disc herniation or significant spinal canal stenosis in the cervical or thoracic spine. 2. Multilevel disc degeneration with associated osteoarthritic changes worse in the cervical spine w ith multilevel at least moderate neural foraminal stenosis.
== END | disposition home or self-care (01) ==
LOC: RADMRIMAIN 06:08
PROVIDERS: ATTEND Psychiatry & Neurology Neurology
DX: M50.021 Cervical disc disorder at C4-C5 level with myelopathy (principal); M47.12 Other spondylosis with myelopathy, cervical region; R29.2 Abnormal reflex; R26.1 Paralytic gait; M99.71 Connective tissue and disc stenosis of intervertebral foramina of cervical region
CPT/HCPCS: 72141; 72146

== ENCOUNTER → 2023-01-18 | Outpatient (CLI) | payer MEDICARE ==
--- NOTE | 2023-01-19 08:54 | MR ---
EXAMINATION TYPE: MR brain wo con DATE OF EXAM: 01/18/2023 12:52 PM COMPARISON: Brain 05/20/2019. CLINICAL INDICATION:Male, 82 years old with history of CVA; CVA, leg weakness, worse mental status, i ncontinence TECHNIQUE: Multi planar, multi sequence imaging was performed through the brain including: T1, T2, In version recovery, Diffusion weighted imaging, and gradient echo imaging. No gadolinium was given. FINDINGS: Motion limits evaluation. Cerebral atrophy is present. There is dilation of ventricular sys tem system out of proportion to cerebral atrophy Chen index 0.42. The huerta-white junctions, ventricular system, and cisterns appear unremarkable. Scattered foci of hi gh T2 signal intensity are seen within the periventricular white matter. Midline structures show no a bnormality. Diffusion-weighted imaging shows no evidence of restricted diffusion. The susceptibility weighted images do not reveal any evidence for micro-hemorrhage. The bone marrow signal is within normal limits. Paranasal sinuses and mastoid air cells: No significant paranasal sinus disease. Visualized orbits: Orbital contents are intact. IMPRESSION: 1. Dilation of the ventricles which can be seen in the setting of normal pressure hydrocephalus. The ventricles are similar in size however compared to 2019 exam. 2. No evidence of intracranial mass or acute/subacute infarct. 3. Nonspecific white matter changes, likely secondary to small vessel ischemic disease.
== END | disposition home or self-care (01) ==
LOC: RADMRIMAIN 12:01
PROVIDERS: ATTEND Psychiatry & Neurology Neurology
DX: I67.9 Cerebrovascular disease, unspecified (principal); R90.82 White matter disease, unspecified; R41.3 Other amnesia; M62.81 Muscle weakness (generalized); R41.82 Altered mental status, unspecified
CPT/HCPCS: 70551

== ENCOUNTER 2023-02-28 17:11 | Inpatient (IN) | payer MEDICARE ==
[2023-02-28 18:59] LABS: Appearance,Urine Clear (Clear); Bilirubin,Urine Negative (Negative); Blood,Urine Negative (Negative); Color,Urine Colorless; Glucose,Urine (UA) Negative (Negative); Ketones,Urine Negative (Negative); Leukocyte Esterase,Urine Negative (Negative); Nitrite,Urine Negative (Negative); Protein,Urine Negative (Negative); Specific Gravity,Urine 1.013 (1.001-1.035); Urobilinogen,Urine <2.0 mg/dL (<2.0)
[2023-02-28 19:10] LABS: INR 0.9 (<1.2); Partial Thromboplastin Time 24.2 sec (22.0-30.0); Prothrombin Time 9.8 sec (9.0-12.0)
[2023-02-28 19:12] LABS: ALT 20 U/L (4-49); AST 23 U/L (17-59); African American GFR (CKD) 77 (>60 ml/min/1.73 sqM); Albumin 3.9 g/dL (3.5-5.0); Alkaline Phosphatase 108 U/L (38-126); Anion Gap 11 mmol/L; Blood Urea Nitrogen 25 mg/dL (9-20); Calcium 8.9 mg/dL (8.4-10.2); Carbon Dioxide 26 mmol/L (22-30); Chloride 107 mmol/L (98-107); Glucose 114 mg/dL (74-99); Magnesium 2.1 mg/dL (1.6-2.3); Non-African American GFR(CKD) 67 (>60 ml/min/1.73 sqM); Potassium 4.6 mmol/L (3.5-5.1); Sodium 144 mmol/L (137-145); Total Bilirubin 0.5 mg/dL (0.2-1.3); Total Protein 6.4 g/dL (6.3-8.2)
--- NOTE | 2023-02-28 19:47 | CT ---
EXAMINATION TYPE: CT brain wo con CT DLP: 1165.4 mGycm, Automated exposure control for dose reduction was used. DATE OF EXAM: 02/28/2023 7:36 PM COMPARISON: 08/19/2022. CLINICAL INDICATION:Male, 83 years old with history of weakness, AMS, weakness TECHNIQUE: Brain: Axial CT images of the brain were obtained with coronal and sagittal reformats created and rev iewed. Contrast used: None. Oral contrast used: None. FINDINGS: Brain: Extra-axial spaces: No abnormal extra-axial fluid collections. Ventricular system: Dilatation in proportion to cerebral atrophy. Cerebral parenchyma: Cerebral atrophy. No acute intraparenchymal hemorrhage or mass effect. The huerta -white junction is well differentiated. Scattered hypoattenuating areas are seen within the white mat ter. Cerebellum: Unremarkable. Mass effect: No evidence of midline shift. Intracranial vasculature: unremarkable Soft tissues: Normal. Calvarium/osseous structures: No depressed skull fracture. Paranasal sinuses and mastoid air cells: Mild scattered paranasal sinus disease. Visualized orbits: Orbital contents are intact. IMPRESSION: 1. No acute intracranial process. 2. Nonspecific white matter changes, likely secondary to chronic small vessel ischemic disease.
[2023-02-28 20:06] LABS: Basophils % (A) 0 %; Eosinophils # (A) 0.2 k/uL (0-0.7); Eosinophils % (A) 3 %; HCT 39.2 % (39.0-53.0); HGB 13.1 gm/dL (13.0-17.5); Lymphocytes # (A) 1.2 k/uL (1.0-4.8); Lymphocytes % (A) 18 %; MCH 32.8 pg (25.0-35.0); MCHC 33.4 g/dL (31.0-37.0); MCV 98.5 fL (80.0-100.0); Mean Platelet Volume 8.4; Monocytes # (A) 0.8 k/uL (0-1.0); Monocytes % (A) 12 %; Neutrophils # (A) 4.4 k/uL (1.3-7.7); Neutrophils % (A) 65 %; Platelet Count 178 k/uL (150-450); RBC 3.98 m/uL (4.30-5.90); RDW 14.1 % (11.5-15.5); WBC 6.8 k/uL (3.8-10.6)
--- NOTE | 2023-02-28 20:41 | XR ---
EXAMINATION TYPE: XR chest 2V DATE OF EXAM: 02/28/2023 8:04 PM CLINICAL INDICATION:Male, 83 years old with history of Weakness; PHH COMPARISON: Chest radiographs from and 02/22/2020 TECHNIQUE: XR chest 2V Frontal and lateral views of the chest. FINDINGS: Lungs/Pleura: There is no evidence of pleural effusion, focal consolidation, or pneumothorax. Pulmonary vascularity: Unremarkable. Heart/mediastinum: Cardiomediastinal silhouette is unremarkable. Musculoskeletal: No acute osseous pathology. IMPRESSION: Low lung volumes with a generalized hazy appearance which could represent atelectasis versus pulmonar y edema correlate with serum BNP.
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
[2023-02-28] MEDS ORDERED: NALOXONE 0.4 MG/ML 1 ML VIAL IV PRN (21:06)
[2023-02-28] MEDS ORDERED: ONDANSETRON 4 MG/2 ML VIAL IVP PRN (21:06)
[2023-02-28] MEDS: MEMANTINE 10 MG TAB PO SCH (23:23)
[2023-02-28] MEDS: ATORVASTATIN 80 MG TAB PO SCH (23:23)
[2023-02-28] MEDS: MELATONIN 5 MG TABLET PO SCH (23:23)
[2023-02-28] MEDS: DONEPEZIL 10 MG TAB PO SCH (23:23)
[2023-02-28] MEDS: ESCITALOPRAM 10 MG TAB PO SCH (23:24)
[2023-03-01 05:15] LABS: Basophils % (A) 0 %; Eosinophils # (A) 0.3 k/uL (0-0.7); Eosinophils % (A) 5 %; HCT 32.6 % (39.0-53.0); HGB 10.8 gm/dL (13.0-17.5); Lymphocytes # (A) 1.7 k/uL (1.0-4.8); Lymphocytes % (A) 25 %; MCH 32.9 pg (25.0-35.0); MCV 99.7 fL (80.0-100.0); Mean Platelet Volume 7.6; Monocytes # (A) 0.5 k/uL (0-1.0); Monocytes % (A) 8 %; Neutrophils # (A) 3.9 k/uL (1.3-7.7); Neutrophils % (A) 59 %; Platelet Count 190 k/uL (150-450); RBC 3.27 m/uL (4.30-5.90); RDW 13.9 % (11.5-15.5); WBC 6.6 k/uL (3.8-10.6)
[2023-03-01 05:28] LABS: African American GFR (CKD) 77 (>60 ml/min/1.73 sqM); Anion Gap 8 mmol/L; Blood Urea Nitrogen 23 mg/dL (9-20); Calcium 8.6 mg/dL (8.4-10.2); Carbon Dioxide 28 mmol/L (22-30); Chloride 105 mmol/L (98-107); Glucose 117 mg/dL (74-99); Non-African American GFR(CKD) 66 (>60 ml/min/1.73 sqM); Potassium 4.1 mmol/L (3.5-5.1); Sodium 141 mmol/L (137-145)
[2023-03-01] MEDS: BACLOFEN 10 MG TAB PO SCH ×2 (09:24→21:07)
[2023-03-01] MEDS: MEMANTINE 10 MG TAB PO SCH ×2 (09:24→21:07)
[2023-03-01] MEDS: FINASTERIDE 5 MG TAB PO SCH (09:24)
[2023-03-01] MEDS: BUMETANIDE 1 MG TAB PO SCH (09:24)
[2023-03-01] MEDS: TAMSULOSIN 0.4 MG CAP.ER.24H PO SCH (09:24)
[2023-03-01] MEDS: ASPIRIN 81 MG PO SCH (09:24)
[2023-03-01] MEDS: POTASSIUM CHLORIDE ER 20 MEQ TAB.ER PO SCH (09:24)
[2023-03-01] MEDS: ASCORBIC ACID 500 MG TAB PO SCH (09:24)
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
[2023-03-01] MEDS ORDERED: NON FORMULARY DRUG (Ginkgo Biloba Leaf Extract [Ginkgo] 60 MG Tablet) PO SCH (21:00)
[2023-03-01] MEDS: MELATONIN 5 MG TABLET PO SCH (21:07)
[2023-03-01] MEDS: ACETAMINOPHEN TAB 325 MG TAB PO PRN (21:07)
[2023-03-01] MEDS: DONEPEZIL 10 MG TAB PO SCH (21:07)
[2023-03-01] MEDS: ATORVASTATIN 80 MG TAB PO SCH (21:07)
[2023-03-01] MEDS: VIT A,C & E-LUTEIN-MINERALS 1 EACH TAB PO SCH (21:07)
[2023-03-01] MEDS: ESCITALOPRAM 10 MG TAB PO SCH (21:45)
[2023-03-02] MEDS ORDERED: NON FORMULARY DRUG (Fish Oil/Dha/Epa [Fish Oil 1,200 Mg Fish Oil] 1 EACH Capsule) PO SCH (09:00)
[2023-03-02] MEDS: BACLOFEN 10 MG TAB PO SCH ×2 (09:08→20:36)
[2023-03-02] MEDS: ASCORBIC ACID 500 MG TAB PO SCH (09:08)
[2023-03-02] MEDS: ZINC SULFATE 220 MG CAP PO SCH (09:08)
[2023-03-02] MEDS: POTASSIUM CHLORIDE ER 20 MEQ TAB.ER PO SCH (09:08)
[2023-03-02] MEDS: TAMSULOSIN 0.4 MG CAP.ER.24H PO SCH (09:08)
[2023-03-02] MEDS: ASPIRIN 81 MG PO SCH (09:08)
[2023-03-02] MEDS: CHOLECALCIFEROL 25 MCG (1000 IU) TABLET PO SCH (09:09)
[2023-03-02] MEDS: ENOXAPARIN 40 MG/0.4 ML SYRINGE SQ SCH (09:09)
[2023-03-02] MEDS: FINASTERIDE 5 MG TAB PO SCH (09:09)
[2023-03-02] MEDS: BUMETANIDE 1 MG TAB PO SCH (09:09)
[2023-03-02] MEDS: MEMANTINE 10 MG TAB PO SCH ×2 (09:09→20:36)
[2023-03-02] MEDS: DAPAGLIFLOZIN PROPANEDIOL 5 MG TABLET PO SCH (09:09)
[2023-03-02] MEDS: MULTIVITAMINS, THERA 1 EACH TAB PO SCH (09:09)
[2023-03-02] MEDS: VIT A,C & E-LUTEIN-MINERALS 1 EACH TAB PO SCH ×2 (09:09→20:36)
--- NOTE | 2023-03-02 09:41 | P.PN ---
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 status post posterior lumbar discectomy with fusion enlarged prostate, history of CVA in the past, patient has been having significant decline in his physical condition as well as mental state and the patient is not able to care of his activities of daily living with recurrent falls and recurrent injuries is currently is laying down in bed and not able to move out of the bed, he continues to wet himself and so it himself and his is not able to the care of him at this point in time, therefore the patient was brought into the emergency department at [facility] via EMS and the patient was seen in the ER had a computed tomography scan of the brain did not show evidence of acute abdomen and pelvis, chest x-ray did show evidence of pulmonary vascular congestion and his EKG showed normal sinus rhythm with no acute ST-T wave changes, but because of the presentation and the patient safety at home he was kept in the hospital with social media community manager consultation physical therapy evaluation for possible extended care facility placement the patient does appear to have a significant weakness in both lower extremities is not able template at all. 03/02: Patient is sitting up in bed in no apparent distress, he slept well last night, he continues to be very weak in both lower extremities, physical therapy is to evaluate the patient tomorrow morning along with the social media community manager consultation for subacute rehabilitation versus chronic care, patient is not a candidate for hospice care at this point in time. REVIEW OF SYSTEMS: Constitutional: No documented fever, no chills, no night sweats. No weight change. No weakness, fatigue or lethargy. No daytime sleepiness. HEENT: No headache. No blurred vision or double vision, no loss of vision. No loss of Hearing, no ringing in the ears, no dizziness. No nasal drainage or congestion. No epistaxis. No sore throat. Lungs: No shortness of breath, no cough, no sputum production. No wheezing. Reports dyspnea with activity. Cardiovascular: No chest pain, no lower extremity edema. No palpitations. No paroxysmal nocturnal dyspnea. No orthopnea. No lightheadedness or dizziness. No syncopal episodes. Abdominal: Reports no abdominal pain. No nausea, vomiting. No diarrhea. No constipation. No bloody or tarry stools reports loss of appetite. Genitourinary: No dysuria, increased frequency, urgency. No urinary retention. Musculoskeletal: No myalgias. positive for muscle weakness, positive for gait dysfunction, positive for frequent falls. positive for back pain. No neck pain. Integumentary: No wounds, no lesions. No rash or pruritus. No unusual bruising. No change in hair or nails. Neurologic: No aphasia. No facial droop. No change in mentation. No head injury. No headache. No paralysis. No paresthesia.memory loss Psychiatric: No depression. No anxiety. No mood swings. Endocrine: No abnormal blood sugars. No weight change. PHYSICAL EXAMINATION: General: 83-year-old male laying down in bed in no apparent distress HEENT: Head is atraumatic, normocephalic, pupils were equal round reactive to light and recommendation, extraocular muscle movement were intact, sclera nonicteric, conjunctivae were pale, mucous membranes of the mouth are somewhat dry. Neck: Supple, no JVP, normal carotid upstroke bilaterally, no lymphadenopathy. Chest: Decreased breath sounds at the bases, few rhonchi, no expiratory wheezes, no chest wall tenderness, no intercostal retractions. Heart: First heart sound is normal, second heart sound is normal there is sys tolic ejection murmur 2/6 located in the left sternal border. Abdomen: Soft, nontender, nondistended, positive bowel sounds. Extremities: There is +2 edema no calf tenderness DP +2 bilaterally. Neurologic examination: Patient is awake alert and oriented X2, cranial nerves II-12 appear grossly intact, muscle power were 4 out of 5 in upper extremities and 3 out of 5 in bilateral lower extremities, deep tendon reflexes were depressed bilaterally with neuropathy of both feet ASSESSMENT AND PLAN: 1. Bilateral lower extremity weakness with recurrent falls and inability to perform activities of daily living with issues regarding safety at home. This is likely related to significant myelopathy due to multiple back surgery as well as significant bilateral lower extremity neuropathy. Patient will be admitted to the hospital he would be seen in consultation by physical therapy and occupational therapy as well as social media community manager the patient needed to be placed in extended care facility. 2. Coronary artery disease status post PCI 2. Continue patient on aspirin 81 mg once every day, atorvastatin 80 mg once every day, she has been under the care of cardiology on a regular basis. 3. Mixed hyperlipidemia. Continue atorvastatin 80 mg orally once every day monitor the patient panel, LDL 55-70. 4. History of CVA in the past. Continue patient on aspirin 81 mg once every day and atorvastatin 80 mg once every day for secondary stroke prevention. 5. Vascular dementia without behavioral disturbances. Continue patient on Namenda 10 mg orally twice every day and Donepeil 10 mg orally daily Patient has been under the care of Dr. Edwards as an outpatient. 6. 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 Patient has suffered from significant weakness in both lower extremities and he has suffered from incontinence of urine and stool at this point patient would need to have an excellent care facility at this time. Continue baclofen 10 mg orally twice every day. 7. Chronic diastolic heart failure. Continue Bumex 1 mg orally once every day, continue potassium supplement. Continue Farxiga 5 mg orally once every day. 8. Diabetes mellitus type 2. Patient was on Ozempic 0.25 mg Sc q week and F arxiga but his to come off it because of urinary incontinence. 9. Chronic kidney disease stage 3a. Continue patient on Bumex 1 mg orally once every day as well as potassium supplement, continue patient on Farxiga 5 mg po daily. 10. Anxiety and depressive disorder. Continue Lexapro 10 mg orally once every day. 11. Enlarged prostate. Continue finasteride 5 mg once every day as well as tamsulosin 0.4 mg orally once every day. 12. Medical debility due to her chronic medical issues. Physical therapy and occupational therapy evaluation as well as social media community manager consultation for place ment 13. DVT prophylaxis. Continue patient on Lovenox 40 mg subcutaneously every 24 hours. 14. GI Prophylaxis Continue patient on Protonix 40 mg orally once every day. 15. No code. Objective - Vital Signs Vital signs: Vital Signs Temp 98.0 F 03/02/23 02:00 Pulse 68 03/02/23 06:52 Resp 17 03/02/23 06:52 BP 147/81 03/02/23 06:52 Pulse Ox 96 03/02/23 06:52 FiO2 Intake & Output 03/01/23 03/02/23 03/02/23 18:59 06:59 18:59 Other: # Voids 1 2 - Labs CBC & Chem 7: 03/01/23 04:08 03/01/23 04:05
[2023-03-02] MEDS: MELATONIN 5 MG TABLET PO SCH (20:36)
[2023-03-02] MEDS: ACETAMINOPHEN TAB 325 MG TAB PO PRN (20:36)
[2023-03-02] MEDS: DONEPEZIL 10 MG TAB PO SCH (20:36)
[2023-03-02] MEDS: ATORVASTATIN 80 MG TAB PO SCH (20:36)
[2023-03-02] MEDS: ESCITALOPRAM 10 MG TAB PO SCH (23:49)
[2023-03-03] MEDS: DAPAGLIFLOZIN PROPANEDIOL 5 MG TABLET PO SCH (08:22)
[2023-03-03] MEDS: FINASTERIDE 5 MG TAB PO SCH (08:22)
[2023-03-03] MEDS: TAMSULOSIN 0.4 MG CAP.ER.24H PO SCH (08:22)
[2023-03-03] MEDS: MEMANTINE 10 MG TAB PO SCH ×2 (08:22→21:50)
[2023-03-03] MEDS: CHOLECALCIFEROL 25 MCG (1000 IU) TABLET PO SCH (08:22)
[2023-03-03] MEDS: POTASSIUM CHLORIDE ER 20 MEQ TAB.ER PO SCH (08:22)
[2023-03-03] MEDS: MULTIVITAMINS, THERA 1 EACH TAB PO SCH (08:22)
[2023-03-03] MEDS: ASCORBIC ACID 500 MG TAB PO SCH (08:22)
[2023-03-03] MEDS: ASPIRIN 81 MG PO SCH (08:22)
[2023-03-03] MEDS: ZINC SULFATE 220 MG CAP PO SCH (08:22)
[2023-03-03] MEDS: BACLOFEN 10 MG TAB PO SCH ×2 (08:22→21:50)
[2023-03-03] MEDS: VIT A,C & E-LUTEIN-MINERALS 1 EACH TAB PO SCH ×2 (08:23→21:50)
[2023-03-03] MEDS: BUMETANIDE 1 MG TAB PO SCH (08:23)
[2023-03-03] MEDS: ENOXAPARIN 40 MG/0.4 ML SYRINGE SQ SCH (08:23)
--- NOTE | 2023-03-03 16:16 | P.PN ---
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 status post posterior lumbar discectomy with fusion enlarged prostate, history of CVA in the past, patient has been having significant decline in his physical condition as well as mental state and the patient is not able to care of his activities of daily living with recurrent falls and recurrent injuries is currently is laying down in bed and not able to move out of the bed, he continues to wet himself and so it himself and his is not able to the care of him at this point in time, therefore the patient was brought into the emergency department at [facility] via EMS and the patient was seen in the ER had a computed tomography scan of the brain did not show evidence of acute abdomen and pelvis, chest x-ray did show evidence of pulmonary vascular congestion and his EKG showed normal sinus rhythm with no acute ST-T wave changes, but because of the presentation and the patient safety at home he was kept in the hospital with oncology social worker consultation physical therapy evaluation for possible extended care facility placement the patient does appear to have a significant weakness in both lower extremities is not able template at all. 03/02: Patient is sitting up in bed in no apparent distress, he slept well last night, he continues to be very weak in both lower extremities, physical therapy is to evaluate the patient tomorrow morning along with the oncology social worker consultation for subacute rehabilitation versus chronic care, patient is not a candidate for hospice care at this point in time. 03/03: Blood pressure 107/64, heart rate in the 70s and 80s, afebrile, pulse ox 94% on room air. Patient has been seen by oncology social worker and plan for discharge is [facility] or medical [place] [facility] [place] or [facility]. REVIEW OF SYSTEMS: Constitutional: No documented fever, no chills, no night sweats. No weight change. No weakness, fatigue or lethargy. No daytime sleepiness. HEENT: No headache. No blurred vision or double vision, no loss of vision. No loss of Hearing, no ringing in the ears, no dizziness. No nasal drainage or c ongestion. No epistaxis. No sore throat. Lungs: No shortness of breath, no cough, no sputum production. No wheezing. Reports dyspnea with activity. Cardiovascular: No chest pain, no lower extremity edema. No palpitations. No paroxysmal nocturnal dyspnea. No orthopnea. No lightheadedness or dizziness. No syncopal episodes. Abdominal: Reports no abdominal pain. No nausea, vomiting. No diarrhea. No constipation. No bloody or tarry stools reports loss of appetite. Genitourinary: No dysuria, increased frequency, urgency. No urinary retention. Musculoskeletal: No myalgias. positive for muscle weakness, positive for gait dysfunction, positive for frequent falls. positive for back pain. No neck pain. Integumentary: No wounds, no lesions. No rash or pruritus. No unusual bruisi ng. No change in hair or nails. Neurologic: No aphasia. No facial droop. No change in mentation. No head injury. No headache. No paralysis. No paresthesia.memory loss Psychiatric: No depression. No anxiety. No mood swings. Endocrine: No abnormal blood sugars. No weight change. PHYSICAL EXAMINATION: General: 83-year-old male laying down in bed in no apparent distress HEENT: Head is atraumatic, normocephalic, pupils were equal round reactive to light and recommendation, extraocular muscle movement were intact, sclera nonicteric, conjunctivae were pale, mucous membranes of the mouth are somewhat dry. Neck: Supple, no JVP, normal carotid upstroke bilaterally, no lymphadenopathy. Chest: Decreased breath sounds at the bases, few rhonchi, no expiratory wheezes, no chest wall tenderness, no intercostal retractions. Heart: First heart sound is normal, second heart sound is normal there is systolic ejection murmur 2/6 located in the left sternal border. Abdomen: Soft, nontender, nondistended, positive bowel sounds. Extremities: There is +2 edema no calf tenderness DP +2 bilaterally. Neurologic examination: Patient is awake alert and oriented X2, cranial nerves II-12 appear grossly intact, muscle power were 4 out of 5 in upper extremities and 3 out of 5 in bilateral lower extremities, deep tendon reflexes were depressed bilaterally with neuropathy of both feet ASSESSMENT AND PLAN: 1. Bilateral lower extremity weakness with recurrent falls and inability to perform activities of daily living with issues regarding safety at home. This is likely related to significant myelopathy due to multiple back surgery as well as significant bilateral lower extremity neuropathy. Patient will be admitted to the hospital he would be seen in consultation by physical therapy and occupational therapy as well as oncology social worker the patient needed to be placed in extended care facility. 2. Coronary artery disease status post PCI 2. Continue patient on aspirin 81 mg once every day, atorvastatin 80 mg once every day, she has been under the care of cardiology on a regular basis. 3. Mixed hyperlipidemia. Continue atorvastatin 80 mg orally once every day monitor the patient panel, LDL 55-70. 4. History of CVA in the past. Continue patient on aspirin 81 mg once every day and atorvastatin 80 mg once every day for secondary stroke prevention. 5. Vascular dementia without behavioral disturbances. Continue patient on Namenda 10 mg orally twice every day and Donepeil 10 mg orally daily Patient has been under the care of Dr. Edwards as an outpatient. 6. 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 Patient has suffered from significant weakness in both lower extremities and he has suffered from incontinence of urine and stool at this point patient would need to have an excellent care facility at this time. Continue baclofen 10 mg orally twice every day. 7. Chronic diastolic heart failure. Continue Bumex 1 mg orally once every day, continue potassium supplement. Continue Farxiga 5 mg orally once every day. 8. Diabetes mellitus type 2. Patient was on Ozempic 0.25 mg Sc q week and Farxiga but his to come off it because of urinary incontinence. 9. Chronic kidney disease stage 3a. Continue patient on Bumex 1 mg orally once every day as well as potassium supplement, continue patient on Farxiga 5 mg po daily. 10. Anxiety and depressive disorder. Continue Lexapro 10 mg orally once every day. 11. Enlarged prostate. Continue finasteride 5 mg once every day as well as tamsulosin 0.4 mg orally once every day. 12. Medical debility due to her chronic medical issues. Physical therapy and occupational therapy evaluation as well as oncology social worker consultation for placement 13. DVT prophylaxis. Continue patient on Lovenox 40 mg subcutaneously every 24 hours. 14. GI Prophylaxis Continue patient on Protonix 40 mg orally once every day. 15. No code. Impression and plan of care have been directed as dictated by the signing physician. Elin Convery nurse practitioner acting as scribe for signing physician. Objective - Vital Signs Vital signs: Vital Signs Temp 97.9 F 03/03/23 13:16 Pulse 77 03/03/23 13:16 Resp 18 03/03/23 13:16 BP 107/64 03/03/23 13:16 Pulse Ox 94 L 03/03/23 13:16 FiO2 Intake & Output 03/02/23 03/03/23 03/03/23 18:59 06:59 18:59 Output Total 300 1000 Balance -300 -1000 Output: Urine 300 1000 Other: # Voids 2 2 # Bowel Movements 1 - Labs CBC & Chem 7: 03/01/23 04:08 03/01/23 04:05
[2023-03-03] MEDS: ACETAMINOPHEN TAB 325 MG TAB PO PRN (18:43)
[2023-03-03] MEDS: ATORVASTATIN 80 MG TAB PO SCH (21:50)
[2023-03-03] MEDS: ESCITALOPRAM 10 MG TAB PO SCH (21:50)
[2023-03-03] MEDS: DONEPEZIL 10 MG TAB PO SCH (21:50)
[2023-03-03] MEDS: MELATONIN 5 MG TABLET PO SCH (21:50)
--- NOTE | 2023-03-04 06:50 | P.DS ---
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 status post posterior lumbar discectomy with fusion enlarged prostate, history of CVA in the past, patient has been having significant decline in his physical condition as well as mental state and the patient is not able to care of his activities of daily living with recurrent falls and recurrent injuries is currently is laying down in bed and not able to move out of the bed, he continues to wet himself and so it himself and his is not able to the care of him at this point in time, therefore the patient was brought into the emergency department at [facility] via EMS and the patient was seen in the ER had a computed tomography scan of the brain did not show evidence of acute abdomen and pelvis, chest x-ray did show evidence of pulmonary vascular congestion and his EKG showed normal sinus rhythm with no acute ST-T wave changes, but because of the presentation and the patient safety at home he was kept in the hospital with forensic social worker consultation physical therapy evaluation for possible extended care facility placement the patient does appear to have a significant weakness in both lower extremities is not able template at all. 03/02: Patient is sitting up in bed in no apparent distress, he slept well last night, he continues to be very weak in both lower extremities, physical therapy is to evaluate the patient tomorrow morning along with the forensic social worker consultation for subacute rehabilitation versus chronic care, patient is not a candidate for hospice care at this point in time. 03/03: Blood pressure 107/64, heart rate in the 70s and 80s, afebrile, pulse ox 94% on room air. Patient has been seen by forensic social worker and plan for discharge is [facility] or [facility] [place] or [facility]. 03/04: Patient has been hemodynamically stable, blood pressure 110/65, heart rate in the 70s, he has been afebrile. He has not required oxygen. Pulse ox is 94% on room air. She denies any new concerns today. Discharge plan is for ECF placement. Patient will be discharged today once all arrangements are completed. DISCHARGE DIAGNOSES: 1. Bilateral lower extremity weakness with recurrent falls and inability to perform activities of daily living with issues regarding safety at home. This is likely related to significant myelopathy due to multiple back surgery as well as significant bilateral lower extremity neuropathy. 2. Coronary artery disease status post PCI 2. 3. Mixed hyperlipidemia. 4. History of CVA in the past. 5. Vascular dementia without behavioral disturbances. 6. 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 Patient has suffered from significant weakness in both lower extremities and he has suffered from incontinence of urine and stool at this point patient would need to have an extended care facility at this time. 7. Chronic diastolic heart failure. 8. Diabetes mellitus type 2. 9. Chronic kidney disease stage 3a. 10. Anxiety and depressive disorder. 11. Enlarged prostate. 12. Medical debility due to chronic medical issues. P No code. DISCHARGE PLAN: ECF Greater than 35 minutes was utilized and coordinating patient's discharge. Impression and plan of care have been directed as dictated by the signing physician. Elin Kiser nurse practitioner acting as scribe for signing physician. Patient Condition at Discharge: Stable Plan - Discharge Summary Discharge Rx Participant: No New Discharge Prescriptions: New Dapagliflozin Propanediol [Farxiga] 5 mg PO DAILY #30 tab Continue Atorvastatin [Lipitor] 80 mg PO HS #30 tab Aspirin EC [Ecotrin Low Dose] 81 mg PO DAILY Tamsulosin [Flomax] 0.4 mg PO DAILY Finasteride [Proscar] 5 mg PO DAILY Cholecalciferol [Vitamin D3 (25 Mcg = 1000 Iu)] 25 mcg PO DAILY Zinc Gluconate [Zinc] 50 mg PO DAILY Vit C/E/Zn/Coppr/Lutein/Zeaxan [Preservision Areds 2 Softgel] 1 cap PO BID Baclofen [Lioresal] 10 mg PO BID Memantine [Namenda] 10 mg PO BID Bumetanide [BUMEX] 1 mg PO DAILY Melatonin 10 mg PO HS Acetaminophen [Tylenol Arthritis] 1,300 mg PO Q8H PRN PRN Reason: Pain Mv-Min/Folic/K1/Lycopen/Lutein [Centrum Silver Men Tablet] 1 tab PO DAILY Fish Oil/Dha/Epa [Fish Oil 1,200 mg Fish Oil] 1 cap PO DAILY Ascorbic Acid [Vitamin C] 500 mg PO DAILY Donepezil [Aricept] 10 mg PO HS Potassium Chloride ER [K-Dur 20] 20 meq PO DAILY Escitalopram Oxalate [Lexapro] 10 mg PO HS Discontinued Ginkgo Biloba [place] Extract [Ginkgo] 120 mg PO BID Discharge Medication List Atorvastatin [Lipitor] 80 mg PO HS #30 tab 11/26/14 [Rx] Aspirin EC [Ecotrin Low Dose] 81 mg PO DAILY 07/06/19 [History] Finasteride [Proscar] 5 mg PO DAILY 07/06/19 [History] Tamsulosin [Flomax] 0.4 mg PO DAILY 07/06/19 [History] Acetaminophen [Tylenol Arthritis] 1,300 mg PO Q8H PRN 02/28/23 [History] Ascorbic Acid [Vitamin C] 500 mg PO DAILY 02/28/23 [History] Baclofen [Lioresal] 10 mg PO BID 02/28/23 [History] Bumetanide [BUMEX] 1 mg PO DAILY 02/28/23 [History] Cholecalciferol [Vitamin D3 (25 Mcg = 1000 Iu)] 25 mcg PO DAILY 02/28/23 [History] Donepezil [Aricept] 10 mg PO HS 02/28/23 [History] Escitalopram Oxalate [Lexapro] 10 mg PO HS 02/28/23 [History] Fish Oil/Dha/Epa [Fish Oil 1,200 mg Fish Oil] 1 cap PO DAILY 02/28/23 [History] Melatonin 10 mg PO HS 02/28/23 [History] Memantine [Namenda] 10 mg PO BID 02/28/23 [History] Mv-Min/Folic/K1/Lycopen/Lutein [Centrum Silver Men Tablet] 1 tab PO DAILY 02/28/23 [History] Potassium Chloride ER [K-Dur 20] 20 meq PO DAILY 02/28/23 [History] Vit C/E/Zn/Coppr/Lutein/Zeaxan [Preservision Areds 2 Softgel] 1 cap PO BID 02/28/23 [History] Zinc Gluconate [Zinc] 50 mg PO DAILY 02/28/23 [History] Dapagliflozin Propanediol [Farxiga] 5 mg PO DAILY #30 tab 03/04/23 [Rx] Follow up Appointment(s)/Referral(s): Marisel Rodgers MD [Primary Care Provider] - 1 Week (AT [place]) Discharge Disposition: TRANSFER TO SNF/ECF
[2023-03-04 07:40] VITALS: TEMP 97.6
[2023-03-04] MEDS: BACLOFEN 10 MG TAB PO SCH (09:16)
[2023-03-04] MEDS: POTASSIUM CHLORIDE ER 20 MEQ TAB.ER PO SCH (09:16)
[2023-03-04] MEDS: TAMSULOSIN 0.4 MG CAP.ER.24H PO SCH (09:16)
[2023-03-04] MEDS: ZINC SULFATE 220 MG CAP PO SCH (09:16)
[2023-03-04] MEDS: FINASTERIDE 5 MG TAB PO SCH (09:16)
[2023-03-04] MEDS: MULTIVITAMINS, THERA 1 EACH TAB PO SCH (09:16)
[2023-03-04] MEDS: ASPIRIN 81 MG PO SCH (09:16)
[2023-03-04] MEDS: CHOLECALCIFEROL 25 MCG (1000 IU) TABLET PO SCH (09:16)
[2023-03-04] MEDS: ENOXAPARIN 40 MG/0.4 ML SYRINGE SQ SCH (09:16)
[2023-03-04] MEDS: ASCORBIC ACID 500 MG TAB PO SCH (09:16)
[2023-03-04] MEDS: BUMETANIDE 1 MG TAB PO SCH (09:16)
[2023-03-04] MEDS: MEMANTINE 10 MG TAB PO SCH (09:16)
[2023-03-04] MEDS: VIT A,C & E-LUTEIN-MINERALS 1 EACH TAB PO SCH (09:17)
[2023-03-04] MEDS: DAPAGLIFLOZIN PROPANEDIOL 5 MG TABLET PO SCH (09:17)
[2023-03-04 13:07] VITALS: BP 120/76; PULSE 72; RESP 17
== END 2023-03-04 14:36 | DRG 552 ==
LOC: EC 17:11 → 4SSUR 21:07
PROVIDERS: ADMIT Internal Medicine; ATTEND Internal Medicine
DX: M47.16 Other spondylosis with myelopathy, lumbar region (principal); I50.32 Chronic diastolic (congestive) heart failure; G95.89 Other specified diseases of spinal cord; I13.0 Hypertensive heart and chronic kidney disease with heart failure and stage 1 through stage 4 chronic kidney disease, or unspecified chronic kidney disease; F01.50 Vascular dementia, unspecified severity, without behavioral disturbance, psychotic disturbance, mood disturbance, and anxiety; E11.41 Type 2 diabetes mellitus with diabetic mononeuropathy; E11.40 Type 2 diabetes mellitus with diabetic neuropathy, unspecified; Z20.822 Contact with and (suspected) exposure to COVID-19; E11.22 Type 2 diabetes mellitus with diabetic chronic kidney disease; N18.31 Chronic kidney disease, stage 3a; F32.A Depression, unspecified; I25.2 Old myocardial infarction; M19.042 Primary osteoarthritis, left hand; M19.041 Primary osteoarthritis, right hand; Z86.73 Personal history of transient ischemic attack (TIA), and cerebral infarction without residual deficits; F41.9 Anxiety disorder, unspecified; N40.0 Benign prostatic hyperplasia without lower urinary tract symptoms; R53.81 Other malaise; G89.29 Other chronic pain; R29.6 Repeated falls; I25.10 Atherosclerotic heart disease of native coronary artery without angina pectoris; E78.2 Mixed hyperlipidemia; Z79.82 Long term (current) use of aspirin; Z79.84 Long term (current) use of oral hypoglycemic drugs; Z96.653 Presence of artificial knee joint, bilateral; Z86.79 Personal history of other diseases of the circulatory system; Z66 Do not resuscitate; Z79.899 Other long term (current) drug therapy; Z82.49 Family history of ischemic heart disease and other diseases of the circulatory system; Z87.442 Personal history of urinary calculi; Z98.61 Coronary angioplasty status
CPT/HCPCS: 36415; 70450; 71046; 80048; 80053; 81003; 83605; 83735; 85025; 85610; 85730; 87636; 93005; 94760; 99285